=== PATIENT | male | born 1970 | race Caucasian/White ===

== ENCOUNTER 2021-08-08 05:30 | Day surgery (SDC) | payer MEDICAID, SELFPAY ==
[~2021-08-08] VITALS: Ht 177.8 cm; Wt 90.7 kg
[2021-08-08] MEDS ORDERED: SIMETHICONE 80 MG TAB.CHEW ONE (06:45)
[2021-08-08] MEDS: MEPERIDINE 100 MG INJ. 100 MG/ML VIAL ONE ×3 (07:35→07:43)
[2021-08-08] MEDS: MIDAZOLAM HCL 5 MG/5 ML VIAL ONE ×3 (07:35→07:42)
[2021-08-08 09:14] VITALS: BP_SYST 123
== END 2021-08-08 08:43 | disposition home or self-care (01) ==
LOC: SMU 05:30 → SDS 05:30
PROVIDERS: ATTEND Internal Medicine Gastroenterology
DX: Z12.11 Encounter for screening for malignant neoplasm of colon (principal); K62.1 Rectal polyp; K64.8 Other hemorrhoids; Z20.822 Contact with and (suspected) exposure to COVID-19; Z79.899 Other long term (current) drug therapy
CPT/HCPCS: 36415; 45380; 87426; 88305; 99152; 99153; G0378; J2175; J2250